=== PATIENT | male | born 1950 | race Hispanic/Latino ===

== ENCOUNTER → 2021-01-15 | Outpatient (CLI) | payer OTHER | END | disposition home or self-care (01) | LOC: RAH 10:24 | PROVIDERS: ATTEND Internal Medicine | DX: N28.89 Other specified disorders of kidney and ureter (principal); K76.0 Fatty (change of) liver, not elsewhere classified; K80.20 Calculus of gallbladder without cholecystitis without obstruction; K44.9 Diaphragmatic hernia without obstruction or gangrene; K57.30 Diverticulosis of large intestine without perforation or abscess without bleeding; I70.0 Atherosclerosis of aorta | CPT/HCPCS: 74150 ==

== ENCOUNTER → 2022-02-28 | Outpatient (CLI) | payer OTHER ==
[~2022-02-28] VITALS: Ht 167.6 cm; Wt 107.5 kg
[~2022-02-28] MED LIST: REGADENOSON 0.4 MG/5 ML PF SYG IVP SCH
== END | disposition home or self-care (01) ==
LOC: SHCH 02-21 08:01
PROVIDERS: ATTEND Internal Medicine Cardiovascular Disease
DX: I49.3 Ventricular premature depolarization (principal); R06.02 Shortness of breath; R07.89 Other chest pain; I10 Essential (primary) hypertension; E11.9 Type 2 diabetes mellitus without complications; E78.5 Hyperlipidemia, unspecified; Z95.5 Presence of coronary angioplasty implant and graft
CPT/HCPCS: 78452; 93017; J2785; A9500 ×2; 96374

== ENCOUNTER → 2024-10-21 | Outpatient (CLI) | payer OTHER ==
[~2024-10-21] MED LIST changes: +ALBU18HF7 IH; +AMLO-257 PO; +ASPI-1443 PO; +ATOR-2 PO; +DAPA10TA PO; +FAMO20TA8 PO; +FLUT15.845 NS; +FURO40TA5 PO; +GLIM2TAB30 PO; +IPRA4AER IH; +ISOS30TA92 PO; +LOSA25TA41 PO; -REGADENOSON 0.4 MG/5 ML PF SYG IVP SCH; +TAMS-1 PO
[2024-10-21] MEDS: REGADENOSON 0.4 MG/5 ML PF SYG IVP ONE (13:51)
--- NOTE | 2024-10-21 14:11 | HMCSR ---
APPROVED REPORT Height: 5 ft 6in Weight: 237 lbs TEST INDICATIONS Cardiomyopathy The imaging protocol used to acquire images was Rest Tc-99m/stress Tc-99m 1 day Consent: The procedure was explained and understood by the patient. Informerd consent was witnessed Deepti Briseno RN First, low dose rest was performed then high dose stress. RESTING DATA: The resting ekg shows: Atrial Fibrillation Rest SPECT myocardial perfusion imaging was performed in supine position 74 minutes following the int ravenous injection of 11 mCi of Tc-99 Sestamibi. Time of rest injection: 08:04: Date: 10/21/2024 Time of rest imagin:18: Date: 10/21/2024 PHARMACOLOGIC STRESS: Pharmacologic stress test was performed by injecting regadenoson 0.4 mg IV push followed by the intra venous injection of 31.6 mCi of Tc-99 Sestamibi. Time of stress injection: 09:42: Date: 10/21/2024 Time of stress imagin:32: Date: 10/21/2024 Heart Rate at time of stress injection: 75 bpm. Gated Stress SPECT was performed 110 minutes after stress injection. The images were gated to evaluate regional wall motion and calculate left ventricular ejection fracti on. STRESS DETAILS Reason for Termination: Infusion complete Stress Symptoms: Dyspnea Max HR Achieved: 88 bpm % of APMHR Achieved: 60 Max Blood Pressure: 152/74 mmHg Stress ECG: Atrial Fibrillation Study quality was good. Lung uptake was Normal. Artifact: increased GI uptake LEFT VENTRICLE Size: The left ventricular size is mildly dilated. Systolic Function:The left ventricular systolic function is moderately decreased. Wall Motion: Cannot assess regional wall motion abnormalities. The left ventricular ejection fraction was calculated to be 30%.TID = . LV PERFUSION There is decreased radiotracer uptake noted a moderate size and degree involving the anterior wall wh ich is more prominent on the stress images compared to the rest images consistent with a reversible i schemia. There is severe decreased radiotracer uptake noted inferiorly present on both the rest and stress images of moderate size consistent with a fixed defect. Conclusion Abnormal myocardial perfusion scan for moderate-sized area of moderate anterior wall ischemia Evidence of prior inferior wall infarct Moderate reduction in LVEF calculated at 30% in the setting of atrial dysrhythmia Mild LV dilatation High-risk scan
== END | disposition home or self-care (01) ==
LOC: SHCH 07:38
PROVIDERS: ATTEND Internal Medicine Cardiovascular Disease
DX: I48.91 Unspecified atrial fibrillation (principal); I42.9 Cardiomyopathy, unspecified; R06.09 Other forms of dyspnea
CPT/HCPCS: 78452; 93017; J2785; A9500 ×2